=== PATIENT | female | born 1990 | race Two or more races ===

== ENCOUNTER 2025-01-19 18:04 | Emergency (ER) | payer OTHER ==
[~2025-01-19] VITALS: Ht 165.1 cm; Wt 80.5 kg
[2025-01-19 18:05] VITALS: BP 111/63; PULSE 91; RESP 18; TEMP 98.1; O2SAT 97
[2025-01-19 18:37] LABS: PLATELET COUNT (AUTO) 318 K/uL (150-450); RED BLOOD CELL COUNT(AUTO) 4.37 MIL/uL (4.00-5.20); RED CELL DISTRIBUTION WIDTH 13.7 % (11.5-14.5); WHITE BLOOD COUNT (AUTO) 10.8 K/uL (4.5-11.0)
[2025-01-19 18:44] LABS: CALCIUM, TOTAL 9.2 mg/dL (8.8-10.5); CREATININE 0.74 mg/dL (0.60-1.30); GLOMERULAR FILTR. RATE CALC > 60 mL/min (>60); GLUCOSE,RANDOM 110 mg/dL (70-110); SODIUM SERUM 136 mmol/L (136-145); UREA NITROGEN, BLOOD 10 mg/dL (7-18)
[2025-01-19 19:52] LABS: APPEARANCE,URINE HAZY (CLEAR); GLUCOSE, URINE (UA) TRACE mg/dL (NEGATIVE); LEUKOCYTE ESTERASE ,URINE LARGE (NEGATIVE); NITRATE,URINE NEGATIVE (NEGATIVE); OCCULT BLOOD,URINE NEGATIVE (NEGATIVE); SPECIFIC GRAVITIY, URINE 1.023 (1.003-1.030)
[2025-01-19 20:00] LABS: HCG,QUANTITATIVE 38843 mIU/mL (0-6)
[2025-01-19 20:13] LABS: SQUAMOUS EPITHELIAL CELL,UR Few /LPF (None Seen)
[2025-01-19] MEDS ORDERED: ONDA-104 PO (20:49)
[2025-01-19] MEDS ORDERED: CEPH-558 PO (20:49)
[2025-01-19] MEDS ORDERED: ACET-66 PO (20:49)
[2025-01-19] MEDS: ACETAMINOPHEN 500 MG TABLET PO ONE (21:02)
[2025-01-19] MEDS: ONDANSETRON 4 MG TABLET PO ONE (21:02)
== END 2025-01-19 21:18 | disposition home or self-care (01) ==
LOC: EMS 18:04
DX: O23.41 Unspecified infection of urinary tract in pregnancy, first trimester (principal); N39.0 Urinary tract infection, site not specified; O21.8 Other vomiting complicating pregnancy; N89.8 Other specified noninflammatory disorders of vagina; R10.32 Left lower quadrant pain; Z3A.01 Less than 8 weeks gestation of pregnancy
CPT/HCPCS: 99284; 76801; 80048; 81001; 83690; 84702; 85025; 87086; 36415; Q0162